=== PATIENT | male | born 1965 | race Caucasian/White ===

== ENCOUNTER → 2021-01-15 | Outpatient (CLI) | payer BC ==
[~2021-01-15] MED LIST: ASPIRIN EC81 MG PO; ATORVASTATIN CA20 MG PO; BRILINTA 90 MG90 MG PO; DAKIN'S SOLUTI500 ML TOP; DIABETA 5 MG TAB5 MG PO; GLUCOPHAGE500 MG PO; INVANZ 1 GM VIAL1 GM IV; JARDIANCE10 MG PO; LEVEMIR100 UNIT/1 SQ; LIPITOR TAB 1010 MG PO; LISINOPRIL10 MG PO; LORTAB 5-325 M1 EACH PO; METOPROLOL SUCC25 MG PO; NITROGLYCERIN0.4 MG SL; NOVOLIN 70100 UNIT/1 SQ; NOVOLOG100 UNIT/1 SQ; PLAVIX75 MG PO; POVIDONE-IOD28.35 GM TOP; TYLENOL 325MG325 MG PO
== END ==
LOC: HEART 5 08:26
DX: E11.9 Type 2 diabetes mellitus without complications (principal); R06.02 Shortness of breath; R94.39 Abnormal result of other cardiovascular function study
CPT/HCPCS: 78452; A9502

== ENCOUNTER → 2021-01-24 | Outpatient (CLI) | payer BC | LOC: ECHO 01-19 09:00 | DX: R06.02 Shortness of breath (principal); R93.1 Abnormal findings on diagnostic imaging of heart and coronary circulation; I51.7 Cardiomegaly | CPT/HCPCS: ECHO; 93306 ==